=== PATIENT | male | born 1970 | race Caucasian/White ===

== ENCOUNTER 2021-07-06 20:48 | Emergency (ER) | payer MEDICAID, OTHER ==
[~2021-07-06] VITALS: Ht 180.3 cm; Wt 98.9 kg
[2021-07-06 20:55] VITALS: BP_SYST 149
[2021-07-06] MEDS ORDERED: LIDOCAINE 1% 10 MG/ML, 20 ML MDV INJ ONE (22:15)
[2021-07-06] MEDS ORDERED: DIPH-TET-PERTUS Vaccine 0.5 ML VIAL (ADACEL) I.M. ONE (22:30)
[2021-07-06] MEDS ORDERED: AMOXICILLIN/CLAVULANATE POTASSIUM 875 MG TABLET PO ONE (22:30)
[2021-07-06] MEDS ORDERED: AMOX-426 PO (23:14)
[2021-07-06] MEDS ORDERED: BACI15OI13 TP (23:14)
[2021-07-06 23:27] VITALS: BP_SYST 149
== END 2021-07-06 23:26 | disposition home or self-care (01) ==
LOC: SED 20:48
DX: S01.511A Laceration without foreign body of lip, initial encounter (principal); I10 Essential (primary) hypertension; Z88.8 Allergy status to other drugs, medicaments and biological substances; Z79.899 Other long term (current) drug therapy; W54.0XXA Bitten by dog, initial encounter; Y93.89 Activity, other specified; Y92.89 Other specified places as the place of occurrence of the external cause; Y99.8 Other external cause status
CPT/HCPCS: 12011; 90471; 90715; 99283; J2001

== ENCOUNTER 2021-07-11 16:12 | Emergency (ER) | payer OTHER ==
[~2021-07-11] VITALS: Ht 180.3 cm; Wt 98.9 kg
[2021-07-11 16:12] VITALS: BP_SYST 141
[~2021-07-11 16:12] MED LIST: AMOX-426 PO; BACI15OI13 TP
[2021-07-11 16:51] VITALS: BP_SYST 136
== END 2021-07-11 16:50 | disposition home or self-care (01) ==
LOC: SED 16:12
DX: S01.511D Laceration without foreign body of lip, subsequent encounter (principal); Z48.02 Encounter for removal of sutures; W54.0XXD Bitten by dog, subsequent encounter
CPT/HCPCS: 99281